=== PATIENT | female | born 1960 | race Caucasian/White ===

== ENCOUNTER 2016-07-24 20:52 | Emergency (ER) | payer OTHER ==
[~2016-07-24] VITALS: Ht 170.2 cm; Wt 93.5 kg
[2016-07-24 20:55] VITALS: Ht 170.2 cm; Wt 93.5 kg
--- NOTE | 2016-07-24 21:54 | ERA ---
ER Documentation Chief Complaint Date/Time DATE: 07/24/16 TIME: 21:52 Chief Complaint both eye redness with discharge x 3 days HPI Patient is a 56-year-old female who complains of 2 day history of left eye redness and tension type headache. Patient has not done anything to relieve symptoms. Patient denies any past medical history. Has had symptoms like this once before and it went away on its own. So practitioner and the recommendation was to let it run its course. Patient denies any pruritus, eye pain, discharge, or close contacts with similar symptoms.. ROS All systems reviewed and are negative except as per history of present illness. Medications Home Meds Active Scripts Acetaminophen (Acetaminophen) 325 Mg Tablet, 325 MG PO QID for 10 Days, TAB Prov:NOAH NUÑEZ PA-C 07/24/16 Allergies Allergies: Coded Allergies: No Known Drug Allergies (Verified Allergy, Unknown, 07/24/16) PMhx/Soc Medical and Surgical Hx: pt denies Surgical Hx Anesthesia Reaction: No Hx Neurological Disorder: No Hx Respiratory Disorders: No Hx Cardiac Disorders: No Hx Psychiatric Problems: No Hx Miscellaneous Medical Probl: Yes (abdominal hernia) Hx Alcohol Use: No Hx Substance Use: No Hx Tobacco Use: No Smoking Status: Never smoker Physical Exam Vitals Vital Signs Date Time Temp Pulse Resp B/P Pulse Ox O2 Delivery O2 Flow Rate FiO2 07/24/16 22:55 98.1 71 17 129/81 99 Room Air 07/24/16 20:55 98.1 63 20 134/87 99 Physical Exam Const: Obese 56-year-old female Head: Atraumatic Eyes: Subconjunctival hemorrhage covering 60% of left sclera diffusely. Right eye exam unremarkable. Pupils PERRLA and extraocular movements intact bilaterally. ENT: Normal External Ears, Nose and Mouth. Neck: Full range of motion..~ No meningismus. Resp: Clear to auscultation bilaterally Cardio: Regular rate and rhythm, no murmurs Abd: Soft, non tender, non distended. Normal bowel sounds Skin: No petechiae or rashes Back: No midline or flank tenderness Ext: No cyanosis, or edema Neur: Awake and alert Psych: Normal Mood and Affect Results 24 hrs Current Medications Medications (Trade) Dose Ordered Sig/Cheryl Route PRN Reason Start Time Stop Time Status Last Admin Dose Admin Tetracaine HCl (Tetracaine 0.5% Steri-Unit Mikaela) 1 drop ONCE ONCE LEFT EYE 07/24/16 22:00 07/24/16 22:01 DC Procedures/MDM Patient presents with a 2-3 day history of left eye redness without pain pruritus or photophobia. At this time I do not suspect acute angle glaucoma but will go ahead and get centimeter to measure the pressure and Snellen chart to measure his visual acuity. Telemeter and visual acuity was normal we will go ahead and give the patient ibuprofen for the tension type headache and discharge with return precautions. Telemeter measured a pressure of 18 in the right eye and 15 in the left eye both on 2 separate occasions. Departure Condition: Stable Additional Instructions: Return to emergency department if symptoms worsen or persist. NOAH NUÑEZ PA-C Jul 24, 2016 21:54
[2016-07-24] MEDS ORDERED: TETRACAINE 0.5% 4 ML OPH LEFT EYE ONE (22:00)
[2016-07-24] MEDS ORDERED: ACET-514 PO (22:49)
[2016-07-24 22:55] VITALS: BP 129/81; PULSE 71; RESP 17; TEMP 98.1
== END 2016-07-24 22:55 | disposition home or self-care (01) ==
LOC: FTE 20:52
DX: H11.32 Conjunctival hemorrhage, left eye (principal)
CPT/HCPCS: 99283